=== PATIENT | male | born 1980 | race Hispanic/Latino ===

== ENCOUNTER 2017-11-14 20:33 | Emergency (ER) | payer MEDICAID ==
[2017-11-14 21:29] LABS: APPEARANCE,URINE Cloudy (CLEAR); BILIRUBIN,URINE Negative (NEGATIVE); COLOR,URINE Yellow (YELLOW); GLUCOSE, URINE (UA) 250 mg/dL (NEGATIVE); KETONES,URINE Negative (NEGATIVE); LEUKOCYTE ESTERASE ,URINE Negative (NEGATIVE); NITRATE,URINE Negative (NEGATIVE); OCCULT BLOOD,URINE Trace (NEGATIVE); PROTEIN,URINE >=1000 (NEGATIVE); UROBILINOGEN,URINE 0.2 mg/dL (0.2-1.0)
[2017-11-14 21:37] LABS: AMPHET/METH SCREEN,URINE NEGATIVE (NEGATIVE); BARBITURATE SCREEN, URINE NEGATIVE (NEGATIVE); BENZODIAZEPINES SCREEN,URINE NEGATIVE (NEGATIVE); CANNABINOID SCREEN,URINE NEGATIVE (NEGATIVE); COCAINE SCREEN,URINE NEGATIVE (NEGATIVE); OPIATE SCREEN,URINE NEGATIVE (NEGATIVE); PHENCYCLIDINE SCREEN,URINE NEGATIVE (NEGATIVE)
[2017-11-14 21:42] LABS: BASOPHILS % (AUTO) 0.6 % (0.0-5.0); EOSINOPHILS % (AUTO) 0.9 % (0.0-8.0); HEMATOCRIT 32.7 % (42-54); LYMPHOCYTES % (AUTO) 15.6 % (21.0-51.0); MEAN CORPUSCULAR HEMOGLOBIN 26.7 pg (27.0-33.0); MEAN CORPUSCULAR HGB CONC 31.3 g/dL (32.0-36.0); MEAN CORPUSCULAR VOLUME 85.2 fL (79-99); MONOCYTES % (AUTO) 7.1 % (3.0-13.0); NEUTROPHILS % (AUTO) 75.8 % (40.0-77.0); PLATELET COUNT (AUTO) 291 K/uL (130-400); RED BLOOD CELL COUNT(AUTO) 3.84 MIL/uL (4.50-6.20); WHITE BLOOD COUNT (AUTO) 10.1 K/uL (4.8-10.8)
[2017-11-14 21:54] LABS: POTASSIUM 5.3 mmol/L (3.5-5.1)
[2017-11-14] MEDS ORDERED: ONDANSETRON HCL 4 MG/2 ML VIAL ONE (21:56)
[2017-11-14] MEDS ORDERED: KETOROLAC TROMETHAMINE 30MG/ML ONE (21:57)
[2017-11-14 21:58] LABS: ALBUMIN 2.2 g/dL (3.5-5.0); BILIRUBIN,TOTAL 0.3 mg/dL (0.2-1.0); TOTAL PROTEIN, SERUM 7.1 g/dL (6.0-8.3)
[2017-11-14 22:03] LABS: BACTERIA,URINE Few /HPF (None Seen); RBC,URINE 0-1 /HPF (0-1); WBC,URINE 0-1 /HPF (0-1)
[2017-11-14 22:04] LABS: AMORPHOUS SEDIMENT,UR Few /LPF (None Seen); SQUAMOUS EPITHELIAL CELL,UR Rare /HPF (0-2)
[2017-11-14] MEDS ORDERED: HYOSCYAMINE SULFATE 0.125 MG TAB.SUBL SL ONE (23:35)
== END 2017-11-15 00:20 | disposition home or self-care (01) ==
LOC: EDH 20:33
DX: R10.30 Lower abdominal pain, unspecified (principal); N28.9 Disorder of kidney and ureter, unspecified; R19.7 Diarrhea, unspecified; R11.2 Nausea with vomiting, unspecified; I12.9 Hypertensive chronic kidney disease with stage 1 through stage 4 chronic kidney disease, or unspecified chronic kidney disease; E11.22 Type 2 diabetes mellitus with diabetic chronic kidney disease; N18.3 Chronic kidney disease, stage 3 (moderate); Z72.0 Tobacco use
CPT/HCPCS: 36415; 74176; 80053; 80305; 81001; 82150; 85025; 83690; 96374; 96375; 99285; J1885; J2405

== ENCOUNTER 2017-11-15 16:07 | Inpatient (IN) | payer MEDICAID ==
[~2017-11-15] VITALS: Ht 190.5 cm; Wt 135.3 kg
[2017-11-15] MEDS ORDERED: ONDANSETRON HCL 4 MG/2 ML VIAL ONE (16:41)
[2017-11-15] MEDS ORDERED: MORPHINE SULFATE 4 MG/1ML SYG ONE ×2 (16:42→18:14)
[2017-11-15] MEDS ORDERED: SODIUM CHLORIDE 0.9% 500ML 500 ML IV ONE (16:42)
[2017-11-15 16:45] LABS: BILIRUBIN,URINE Negative (NEGATIVE); COLOR,URINE Yellow (YELLOW); GLUCOSE, URINE (UA) Negative (NEGATIVE); KETONES,URINE Negative (NEGATIVE); LEUKOCYTE ESTERASE ,URINE Negative (NEGATIVE); NITRATE,URINE Negative (NEGATIVE); OCCULT BLOOD,URINE Small (NEGATIVE); PROTEIN,URINE >=1000 (NEGATIVE); UROBILINOGEN,URINE 0.2 mg/dL (0.2-1.0)
[2017-11-15 16:54] LABS: BASOPHILS % (AUTO) 0.6 % (0.0-5.0); EOSINOPHILS % (AUTO) 0.4 % (0.0-8.0); HEMATOCRIT 30.6 % (42-54); MEAN CORPUSCULAR HEMOGLOBIN 27.3 pg (27.0-33.0); MEAN CORPUSCULAR HGB CONC 31.9 g/dL (32.0-36.0); MEAN CORPUSCULAR VOLUME 85.8 fL (79-99); MONOCYTES % (AUTO) 6.7 % (3.0-13.0); NEUTROPHILS % (AUTO) 79.3 % (40.0-77.0); PLATELET COUNT (AUTO) 339 K/uL (130-400); RED BLOOD CELL COUNT(AUTO) 3.57 MIL/uL (4.50-6.20); RED CELL DISTRIBUTION WIDTH 16.4 % (11.0-15.5); WHITE BLOOD COUNT (AUTO) 11.9 K/uL (4.8-10.8)
[2017-11-15 16:55] LABS: APPEARANCE,URINE SLIGHTLY CLOUDY (CLEAR)
[2017-11-15 17:01] LABS: BACTERIA,URINE Few /HPF (None Seen); RBC,URINE 0-1 /HPF (0-1)
[2017-11-15 17:02] LABS: AMORPHOUS SEDIMENT,UR Few /LPF (None Seen); SQUAMOUS EPITHELIAL CELL,UR Rare /HPF (0-2)
[2017-11-15 17:33] LABS: CREATININE 3.2 mg/dL (0.5-1.5)
[2017-11-15] MEDS ORDERED: ZOSYN 3.375GM+NS 50ML 50 ML IV ONE (18:13)
[2017-11-15] MEDS ORDERED: CALCIUM GLUCONATE 1 GM/10 ML VIAL IV ONE (18:13)
[2017-11-15] MEDS ORDERED: SODIUM CHLORIDE 0.9% 100 ML IV ONE (18:14)
[2017-11-15] MEDS ORDERED: DEXTROSE 50%-WATER 25 GM/50 ML VIAL IV STA (19:47)
[2017-11-15] MEDS ORDERED: INSULIN HUMULIN R 100 UNIT/ML 3ML IV STA (19:47)
[2017-11-15] MEDS ORDERED: SODIUM CHLORIDE 0.9% 1000ML 1,000 ML IV SCH (19:52)
[2017-11-15] MEDS ORDERED: LABETALOL HCL 5 MG/ML 20ML VIAL IV ONE (20:13)
[2017-11-15] MEDS ORDERED: DEXTROSE 50%-WATER 50 ML DISP.SYRIN IV ONE (20:14)
[2017-11-15] MEDS ORDERED: INSULIN HUMULIN R 100 UNIT/ML 3ML ONE (20:14)
[2017-11-15] MEDS ORDERED: GLUCAGON 1MG KIT 1 MG ML IM PRN (20:15)
[2017-11-15] MEDS ORDERED: DEXTROSE 50%-WATER 50 ML DISP.SYRIN IV PRN (20:15)
[2017-11-15 20:45] VITALS: BP 151/87
[2017-11-15] MEDS ORDERED: MORPHINE SULFATE 4 MG/1ML SYG IV PRN (20:45)
[2017-11-15] MEDS ORDERED: INSULIN HUMULIN R 100 UNIT/ML 3ML SQ SCH (21:00)
[2017-11-15] MEDS: ZOSYN 3.375GM+NS 50ML 50 ML IV SCH (21:00)
[2017-11-15] MEDS ORDERED: ONDANSETRON HCL 4 MG/2 ML VIAL IVP PRN (21:00)
[2017-11-15 22:10] LABS: AMPHET/METH SCREEN,URINE NEGATIVE (NEGATIVE); BARBITURATE SCREEN, URINE NEGATIVE (NEGATIVE); BENZODIAZEPINES SCREEN,URINE NEGATIVE (NEGATIVE); CANNABINOID SCREEN,URINE NEGATIVE (NEGATIVE); COCAINE SCREEN,URINE NEGATIVE (NEGATIVE); OPIATE SCREEN,URINE NEGATIVE (NEGATIVE); PHENCYCLIDINE SCREEN,URINE NEGATIVE (NEGATIVE)
[2017-11-15] MEDS: MORPHINE SULFATE 2 MG/ML 1ML SYG IV PRN (22:10)
[2017-11-15] MEDS: METOPROLOL TARTRATE 50 MG TAB PO SCH (22:10)
[2017-11-15] MEDS: DEXTROSE 5 % AND 0.9 % NACL 1,000 ML IV SCH (22:10)
[2017-11-15 23:05] VITALS: BP 120/66
[2017-11-16] VITALS (10 sets, daily range): BP systolic 116–163; BP diastolic 57–95
[2017-11-16 04:06] LABS: BASOPHILS % (AUTO) 0.5 % (0.0-5.0); EOSINOPHILS % (AUTO) 0.3 % (0.0-8.0); HEMATOCRIT 29.1 % (42-54); LYMPHOCYTES % (AUTO) 14.6 % (21.0-51.0); MEAN CORPUSCULAR HEMOGLOBIN 27.1 pg (27.0-33.0); MEAN CORPUSCULAR HGB CONC 31.6 g/dL (32.0-36.0); MEAN CORPUSCULAR VOLUME 85.8 fL (79-99); MONOCYTES % (AUTO) 6.2 % (3.0-13.0); NEUTROPHILS % (AUTO) 78.4 % (40.0-77.0); PLATELET COUNT (AUTO) 286 K/uL (130-400); RED BLOOD CELL COUNT(AUTO) 3.39 MIL/uL (4.50-6.20); RED CELL DISTRIBUTION WIDTH 16.6 % (11.0-15.5); WHITE BLOOD COUNT (AUTO) 10.7 K/uL (4.8-10.8)
[2017-11-16 04:13] LABS: HEMOGLOBIN A1C 5.4 % (4.0-6.0)
[2017-11-16] MEDS: ZOSYN 3.375GM+NS 50ML 50 ML IV SCH ×3 (04:13→22:19)
[2017-11-16] MEDS: DEXTROSE 5 % AND 0.9 % NACL 1,000 ML IV SCH ×3 (04:13→16:40)
[2017-11-16 04:22] LABS: ALBUMIN 1.9 g/dL (3.5-5.0); BILIRUBIN,TOTAL 0.4 mg/dL (0.2-1.0); CREATININE 3.3 mg/dL (0.5-1.5); MAGNESIUM 1.3 mg/dL (1.80-2.40); PHOSPHORUS 4.7 mg/dL (2.5-4.9); POTASSIUM 5.4 mmol/L (3.5-5.1); THYROID STIMULATING HORMONE 1.4 uIU/mL (0.36-3.74); TOTAL PROTEIN, SERUM 6.4 g/dL (6.0-8.3)
[2017-11-16] MEDS: INSULIN HUMULIN R 100 UNIT/ML 3ML SQ SCH ×5 (06:00→21:00)
[2017-11-16] MEDS: METOPROLOL TARTRATE 50 MG TAB PO SCH ×2 (09:19→22:20)
[2017-11-16] MEDS: PANTOPRAZOLE SODIUM 40 MG TABLET.DR PO SCH (09:19)
[2017-11-16] MEDS: MORPHINE SULFATE 2 MG/ML 1ML SYG IV PRN ×2 (14:58→22:20)
[2017-11-16] MEDS: LABETALOL HCL 5 MG/ML 20ML VIAL IV PRN (15:00)
[2017-11-17] VITALS (8 sets, daily range): BP systolic 112–168; BP diastolic 62–104
[2017-11-17 04:40] LABS: MEAN CORPUSCULAR HEMOGLOBIN 27.7 pg (27.0-33.0); MEAN CORPUSCULAR HGB CONC 32.6 g/dL (32.0-36.0); MEAN CORPUSCULAR VOLUME 84.8 fL (79-99); PLATELET COUNT (AUTO) 307 K/uL (130-400); RED BLOOD CELL COUNT(AUTO) 3.07 MIL/uL (4.50-6.20); RED CELL DISTRIBUTION WIDTH 16.4 % (11.0-15.5); WHITE BLOOD COUNT (AUTO) 8.2 K/uL (4.8-10.8)
[2017-11-17 04:47] LABS: % IRON SATURATION 5.2 % (30-44)
[2017-11-17 04:57] LABS: BAND NEUTROPHILS % (MANUAL) 5 % (0-2); BASOPHILS % (MANUAL) 1 % (0-2); LYMPHOCYTES % (MANUAL) 17 % (22-44); MAN.DIFF COMMENT-IMPRESSION MANUAL DIFFERENTIAL; MONOCYTES % (MANUAL) 10 % (2-9); PLATELET MORPHOLOGY COMMENT ADEQUATE; SEGMENTED NEUTROPHILS % 67 % (40-70)
[2017-11-17 05:00] LABS: CREATININE 3.5 mg/dL (0.5-1.5); PHOSPHORUS 5.5 mg/dL (2.5-4.9); POTASSIUM 5.4 mmol/L (3.5-5.1)
[2017-11-17] MEDS: ZOSYN 3.375GM+NS 50ML 50 ML IV SCH ×2 (05:54→21:51)
[2017-11-17] MEDS: INSULIN HUMULIN R 100 UNIT/ML 3ML SQ SCH ×4 (05:55→21:00)
[2017-11-17] MEDS: DEXTROSE 5 % AND 0.9 % NACL 1,000 ML IV SCH ×3 (05:55→20:59)
[2017-11-17] MEDS ORDERED: EPOETIN ALFA 10,000 UNIT/ML VIAL SQ SCH (09:45)
[2017-11-17] MEDS: METOPROLOL TARTRATE 50 MG TAB PO SCH ×2 (10:39→21:52)
[2017-11-17] MEDS: PANTOPRAZOLE SODIUM 40 MG TABLET.DR PO SCH (10:39)
[2017-11-17] MEDS: MORPHINE SULFATE 2 MG/ML 1ML SYG IV PRN (10:43)
[2017-11-17] MEDS: IRON SUCROSE COMPLEX 100 MG in SODIUM CHLORIDE 0.9% 50 ML IV SCH (14:05)
[2017-11-18 04:06] VITALS: BP 152/96
[2017-11-18] MEDS: DEXTROSE 5 % AND 0.9 % NACL 1,000 ML IV SCH ×3 (04:15→20:15)
[2017-11-18 04:26] LABS: BASOPHILS % (AUTO) 0.6 % (0.0-5.0); EOSINOPHILS % (AUTO) 1.5 % (0.0-8.0); HEMATOCRIT 27.6 % (42-54); LYMPHOCYTES % (AUTO) 16.1 % (21.0-51.0); MEAN CORPUSCULAR HEMOGLOBIN 26.9 pg (27.0-33.0); MEAN CORPUSCULAR HGB CONC 31.9 g/dL (32.0-36.0); MEAN CORPUSCULAR VOLUME 84.5 fL (79-99); MONOCYTES % (AUTO) 8.8 % (3.0-13.0); NUCLEATED RED BLOOD CELLS 0.1 % (0.0-0.19); PLATELET COUNT (AUTO) 293 K/uL (130-400); RED BLOOD CELL COUNT(AUTO) 3.27 MIL/uL (4.50-6.20); RED CELL DISTRIBUTION WIDTH 16.6 % (11.0-15.5)
[2017-11-18 04:47] LABS: ALBUMIN 1.6 g/dL (3.5-5.0); BILIRUBIN,TOTAL 0.4 mg/dL (0.2-1.0); POTASSIUM 5.4 mmol/L (3.5-5.1); TOTAL PROTEIN, SERUM 6.3 g/dL (6.0-8.3)
[2017-11-18] MEDS: INSULIN HUMULIN R 100 UNIT/ML 3ML SQ SCH ×4 (05:37→20:43)
[2017-11-18 07:30] VITALS: BP 178/106
[2017-11-18] MEDS: LABETALOL HCL 5 MG/ML 20ML VIAL IV PRN (08:05)
[2017-11-18] MEDS ORDERED: BISACODYL 10 MG SUPP.RECT RC SCH (08:15)
[2017-11-18] MEDS: PANTOPRAZOLE SODIUM 40 MG TABLET.DR PO SCH (08:27)
[2017-11-18] MEDS: METOPROLOL TARTRATE 50 MG TAB PO SCH ×2 (08:27→20:48)
[2017-11-18] MEDS: ZOSYN 3.375GM+NS 50ML 50 ML IV SCH ×2 (08:28→20:48)
[2017-11-18] MEDS: AMLODIPINE BESYLATE 5 MG TAB PO SCH (10:23)
[2017-11-18] MEDS: IRON SUCROSE COMPLEX 100 MG in SODIUM CHLORIDE 0.9% 50 ML IV SCH (10:39)
[2017-11-18 11:00] VITALS: BP 177/109
[2017-11-18] MEDS ORDERED: COMPOUND IV MISC 1 EACH IVSOLN MISC PRN (11:45)
[2017-11-18] MEDS ORDERED: CLONIDINE HCL 0.3 MG TABLET PO SCH (12:30)
[2017-11-18] MEDS ORDERED: SODIUM POLYSTYRENE SULFONATE 15 GM/60 ML ML PO SCH (12:30)
[2017-11-18 15:30] VITALS: BP 125/80
[2017-11-18] MEDS: HYDRALAZINE HCL 10 MG TABLET PO SCH ×2 (17:42→20:48)
[2017-11-18 19:00] VITALS: BP 142/92
[2017-11-19] VITALS: BP_SYST 164; BP_DIAS 100; BP_DIAS 107
[2017-11-19] MEDS: LABETALOL HCL 5 MG/ML 20ML VIAL IV PRN (00:15)
[2017-11-19] MEDS: DEXTROSE 5 % AND 0.9 % NACL 1,000 ML IV SCH (03:42)
[2017-11-19 03:54] LABS: BASOPHILS % (AUTO) 0.5 % (0.0-5.0); EOSINOPHILS % (AUTO) 1.5 % (0.0-8.0); HEMATOCRIT 25.9 % (42-54); LYMPHOCYTES % (AUTO) 14.6 % (21.0-51.0); MEAN CORPUSCULAR HEMOGLOBIN 27.9 pg (27.0-33.0); MEAN CORPUSCULAR HGB CONC 33.2 g/dL (32.0-36.0); MONOCYTES % (AUTO) 7.8 % (3.0-13.0); NEUTROPHILS % (AUTO) 75.6 % (40.0-77.0); PLATELET COUNT (AUTO) 340 K/uL (130-400); RED BLOOD CELL COUNT(AUTO) 3.09 MIL/uL (4.50-6.20); RED CELL DISTRIBUTION WIDTH 16.1 % (11.0-15.5); WHITE BLOOD COUNT (AUTO) 8.9 K/uL (4.8-10.8)
[2017-11-19 04:00] VITALS: BP 144/91
[2017-11-19 04:12] LABS: ALBUMIN 1.6 g/dL (3.5-5.0); BILIRUBIN,TOTAL 0.5 mg/dL (0.2-1.0); CREATININE 2.8 mg/dL (0.5-1.5); MAGNESIUM 1.3 mg/dL (1.80-2.40); POTASSIUM 4.8 mmol/L (3.5-5.1); TOTAL PROTEIN, SERUM 6.2 g/dL (6.0-8.3)
[2017-11-19] MEDS ORDERED: MAGNESIUM 2GM PREMIX 50ML 50 ML IV PRN (04:30)
[2017-11-19] MEDS ORDERED: MAGNESIUM 2GM PREMIX 50ML 50 ML IV ONE (04:37)
[2017-11-19] MEDS: INSULIN HUMULIN R 100 UNIT/ML 3ML SQ SCH ×2 (06:32→11:30)
[2017-11-19 08:04] VITALS: BP 159/98
[2017-11-19] MEDS: METOPROLOL TARTRATE 50 MG TAB PO SCH (08:55)
[2017-11-19] MEDS: AMLODIPINE BESYLATE 5 MG TAB PO SCH (08:55)
[2017-11-19] MEDS: IRON SUCROSE COMPLEX 100 MG in SODIUM CHLORIDE 0.9% 50 ML IV SCH (08:56)
[2017-11-19] MEDS: PANTOPRAZOLE SODIUM 40 MG TABLET.DR PO SCH (08:56)
[2017-11-19] MEDS: HYDRALAZINE HCL 10 MG TABLET PO SCH ×2 (09:38→12:46)
[2017-11-19] MEDS: ZOSYN 3.375GM+NS 50ML 50 ML IV SCH (10:19)
[2017-11-19 12:16] VITALS: BP 144/94
[2017-11-19] MEDS ORDERED: HYDR-3420 PO (13:20)
[2017-11-19] MEDS ORDERED: AMLO5TAB4 PO (13:20)
[2017-11-19] MEDS ORDERED: METO50 PO (13:20)
[2017-11-19] MEDS ORDERED: PANT40TA PO (13:20)
[2017-11-19] MEDS ORDERED: FERR324T4 PO (13:23)
== END 2017-11-19 15:00 | disposition home or self-care (01) | DRG 254 ==
LOC: EDH 16:07 → OBSVTOIN 16:08 → EDHIP 16:08 → 3AH 20:45
PROVIDERS: ADMIT Hospitalist; ATTEND Hospitalist
PROC: 3E0234Z Introduction of Serum, Toxoid and Vaccine into Muscle, Percutaneous Approach (ICD-10-PCS; principal; 2017-11-16)
DX: K35.80 Unspecified acute appendicitis (principal); E11.21 Type 2 diabetes mellitus with diabetic nephropathy; N17.9 Acute kidney failure, unspecified; N18.3 Chronic kidney disease, stage 3 (moderate); E11.36 Type 2 diabetes mellitus with diabetic cataract; E11.51 Type 2 diabetes mellitus with diabetic peripheral angiopathy without gangrene; E87.5 Hyperkalemia; E66.9 Obesity, unspecified; D64.9 Anemia, unspecified; K52.9 Noninfective gastroenteritis and colitis, unspecified; D63.1 Anemia in chronic kidney disease; E11.22 Type 2 diabetes mellitus with diabetic chronic kidney disease; E11.65 Type 2 diabetes mellitus with hyperglycemia; E78.00 Pure hypercholesterolemia, unspecified; E87.2 Acidosis; F17.210 Nicotine dependence, cigarettes, uncomplicated; I12.9 Hypertensive chronic kidney disease with stage 1 through stage 4 chronic kidney disease, or unspecified chronic kidney disease; K59.00 Constipation, unspecified; Z89.511 Acquired absence of right leg below knee; Z23 Encounter for immunization; Z68.36 Body mass index [BMI] 36.0-36.9, adult; Z91.19 Patient's noncompliance with other medical treatment and regimen; Z82.3 Family history of stroke; Z83.3 Family history of diabetes mellitus; Z80.9 Family history of malignant neoplasm, unspecified; Z82.49 Family history of ischemic heart disease and other diseases of the circulatory system
CPT/HCPCS: 36415; 74176; 80048; 80053; 80061; 80305; 81001; 82150; 82948; 83036; 83540; 83550; 83690; 83735; 84100; 84132; 84443; 85025; 93005; 96374; 96375; G0008; J0610; J0885; J1756; J1815; J1885; J2270; J2405; J2543; J3475; J3490; J7040; J7042; J7070; Q2038